=== PATIENT | male | born 1985 | race Caucasian/White ===

== ENCOUNTER 2018-09-19 12:16 | Emergency (ER) | payer BC ==
[~2018-09-19] VITALS: Ht 182.9 cm; Wt 82.0 kg
[2018-09-19 12:19] VITALS: BP 146/85
== END 2018-09-19 13:08 | disposition left against medical advice (07) ==
LOC: ER 12:16
DX: F41.0 Panic disorder [episodic paroxysmal anxiety] (principal); Z53.21 Procedure and treatment not carried out due to patient leaving prior to being seen by health care provider